=== PATIENT | female | born 1980 | race Caucasian/White ===

== ENCOUNTER → 2020-06-22 15:21 | Outpatient (CLI) | payer OTHER, SELFPAY | PROVIDERS: PCP Pediatrics; Visit Provider Otolaryngology Otolaryngology/Facial Plastic Surgery | DX: J03.90 Acute tonsillitis, unspecified (principal) | CPT/HCPCS: 87070; 87077 ==

== ENCOUNTER → 2020-06-29 08:24 | Outpatient (CLI) | payer OTHER, SELFPAY ==
--- NOTE | 2020-06-29 08:28 | CT_ITS ---
STUDY: CT MAXILLOFACIAL SINUSES REASON FOR EXAM: Female, 40 years old. CHRONIC SINUSITIS RADIATION DOSAGE (If Supplied By Facility): CTDIvol = ( 33.06 ) mGy, DLP = ( 610.71 ) mGycm TECHNIQUE: The patient was scanned in a multi detector CT scanner. High resolution axial imaging was performed without the administration of intravenous contrast material. Sagittal and coronal images were reconstructed. Individualized dose optimization techniques were used for this CT. COMPARISON: None. FINDINGS: FRONTAL SINUSES: Normal aeration, without mucosal inflammatory disease. ETHMOIDAL SINUSES: Normal aeration, without mucosal inflammatory disease. MAXILLARY SINUSES: Normal aeration, without mucosal inflammatory disease. SPHENOIDAL SINUSES: Normal aeration, without mucosal inflammatory disease. There is patency of the bilateral maxillary infundibuli with normal uncinate processes, ethmoid bullae, and hiatus semilunaris. There is a luigi bullosa of the right middle turbinate. Normal bilateral inferior turbinates. There is a left sided nasal septal deviation with a left sided nasal septal spur. There is patency of the bilateral nasal airways. The visualized osseous structures are normal. The visualized bilateral orbital contents are normal. CT/Sinus/Facial Bone IMPRESSION: No significant paranasal sinus disease. Electronically Signed: David Hoyt MD ([place]) at 9:57 EST , Service support ,
== END ==
LOC: CT 08:28
PROVIDERS: PCP Pediatrics; Referring Provider Otolaryngology Otolaryngology/Facial Plastic Surgery; Visit Provider Otolaryngology Otolaryngology/Facial Plastic Surgery
DX: J32.8 Other chronic sinusitis (principal)
CPT/HCPCS: 70486

== ENCOUNTER → 2021-01-22 13:03 | Outpatient (CLI) | payer OTHER, SELFPAY ==
[2021-01-26 10:08] LABS: Almond 0.15 kU/L (Class 0/I); Carrot 0.21 kU/L (Class 0/I); Cashew <0.10 kU/L (Class 0); Chicken <0.10 kU/L (Class 0); Egg, White 0.45 kU/L (Class I); Egg, Whole 0.41 kU/L (Class I); Egg, Yolk 0.24 kU/L (Class 0/I); Garlic 0.86 kU/L (Class II); Gluten 0.37 kU/L (Class I); Hazelnut/Filbert 0.19 kU/L (Class 0/I); Milk (Cow) 0.57 kU/L (Class II); Onion 0.45 kU/L (Class I); Pea 0.13 kU/L (Class 0/I); Pecan <0.10 kU/L (Class 0); Pork <0.10 kU/L (Class 0); Rice 0.24 kU/L (Class 0/I); SESAME SEED 0.34 kU/L (Class I); Salmon <0.10 kU/L (Class 0); Shrimp <0.10 kU/L (Class 0); Soybean 0.21 kU/L (Class 0/I); Tomato 0.53 kU/L (Class I); Tuna <0.10 kU/L (Class 0); Wheat 0.63 kU/L (Class II); Yeast <0.10 kU/L (Class 0)
[2021-01-26 13:48] LABS: Peanut 0.31 kU/L (Class 0/I); Turkey <0.10 kU/L (Class 0)
== END ==
PROVIDERS: PCP Pediatrics; Referring Provider Otolaryngology Otolaryngology/Facial Plastic Surgery; Visit Provider Otolaryngology Otolaryngology/Facial Plastic Surgery
DX: T78.40XA Allergy, unspecified, initial encounter (principal)
CPT/HCPCS: 36415; 86003